=== PATIENT | female | born 1950 | race Caucasian/White ===

== ENCOUNTER 2016-08-15 07:34 | Day surgery (SDC) | payer MEDICARE, OTHER ==
[~2016-08-15] VITALS: Ht 162.6 cm; Wt 82.0 kg
[~2016-08-15 07:34] MED LIST: 0.9% Sodium Chloride 1,000 ML IV SCH; AMLO5TAB2 PO; BUPR150T9 PO; FLUO20TA28 PO; GABA-502 PO; LIP40 PO; LOSA100T29 PO; OMEP40CA36 PO; Sodium Chloride LOK Flush 10 mL Syringe IV PRN; fentaNYL-PF 50 mCg/mL 2 mL Inj IVPUSH PRN
[2016-08-15 07:49] VITALS: BP 131/81; PULSE 73; RESP 16; O2SAT 98
[2016-08-15 08:53] VITALS: BP 136/79; PULSE 77; RESP 13; O2SAT 92
[2016-08-15 09:03] VITALS: BP 117/87; PULSE 77; RESP 14; O2SAT 93
[2016-08-15 09:13] VITALS: BP 170/86; PULSE 88; RESP 16; O2SAT 93
[2016-08-15 09:22] VITALS: BP 151/78; PULSE 83; RESP 15; O2SAT 92
--- NOTE | 2016-08-15 15:57 | ENDO ---
[address] [address] ENDOSCOPY PROCEDURE PATIENT: GÓMEZ MONTOYA : 1950 MR#: [id number] ADMIT: 08/15/2016 JOB ID: [id number] DATE: 08/15/2016 TYPE OF OPERATION: 1. Esophagogastroduodenoscopy with biopsy. 2. Colonoscopy with biopsy. PREOPERATIVE DIAGNOSIS(ES): Gastroesophageal reflux disease, presumed ulcerative colitis. POSTOPERATIVE DIAGNOSIS(ES): 1. Mild nonerosive gastritis. 2. Slight narrowed pylorus status post biopsy in which a pediatric upper scope was able to pass through without any masses. 3. Mild sigmoid diverticulosis. 4. Small internal hemorrhoids. ANESTHESIA: 1. Fentanyl 175 mcg. 2. Versed 7 mg IV administered. COMPLICATION: None. BLOOD LOSS: Minimal. DESCRIPTION OF PROCEDURE: After the risks and benefits were explained to the patient, informed consent was obtained. After anesthesia administered, an upper endoscope was inserted into the mouth, intubating the esophagus, stomach, second portion of duodenum. Mucosa carefully examined. After the procedure was done, the scope was withdrawn and the procedure terminated. A colonoscope was then inserted from the rectum to the terminal ileum and mucosa carefully examined. The prep of the patient was excellent. After procedure was done, the scope withdrawn and procedure terminated. FINDINGS: Upon inspection of the esophagus, the esophagus was normal without masses, ulcers, lesions. Z-line located at 35 cm from incisors. Upon entering the stomach, there was mild nonerosive gastritis that was seen. No masses, ulcers or lesions were seen. Upon trying to enter the pylorus, the regular upper endoscope could not pass through most likely unknown or may be most likely due to anatomical defect versus extrinsic compression. A pediatric upper endoscope, the spaghetti scope was able to pass through to the duodenal bulb, first and second portion were normal without any masses or lesions. Biopsies also taken of the pylorus, antrum and body of the stomach and distal esophagus. Upon inspection of the anus, no masses, hemorrhoids, ulcers, fissures that were seen throughout the entire examination. There was mild sigmoid diverticulosis. No masses or polyps were seen. Biopsies taken of the terminal ileum and random colon to rule out inflammatory bowel disease. Retroflexion showed small internal hemorrhoids. IMPRESSION: 1. Small internal hemorrhoids. 2. Mild sigmoid diverticulosis. 3. Slightly narrow pylorus status post biopsy. 4. Mild nonerosive gastritis. RECOMMENDATION: 1. Await pathology results. 2. CT of the abdomen and pelvis with contrast to rule out extrinsic masses mass. 3. Follow up in GI clinic as needed.
--- NOTE | 2016-08-16 11:59 | PATH ---
SURGICAL PATHOLOGY Attending Physician:Ehsan Morley MD CASE STATUS: Signed Out PATIENT NAME: GÓMEZ MONTOYA PID: [id number] : 1950 DATE COLLECTED:08/15/2016 20:02 SPECIMEN: 1: Stomach, Antrum, Biopsy 2: Gastric, Biopsy 3: Esophagus, Biopsy 4: Gastric, Biopsy 5: Ileum, Biopsy 6: Colon, Biopsy CLINICAL HISTORY: 1). ANTRUM BIOPSY 2). GASTRIC BODY BIOPSY 3). DISTAL ESOPHAGUS BIOPSY 4). PYLORUS BIOPSY 5). TERMINAL ILEUM BIOPSY 6). RANDOM COLON FINAL DIAGNOSIS: 1. Gastric Antrum Biopsy: Gastric antral mucosa with no diagnostic alterations. Negative for intestinal metaplasia. Negative for Helicobacter organisms. Negative for dysplasia and malignancy. 2. Gastric Body Biopsy: Gastric body mucosa with no diagnostic alterations. Negative for intestinal metaplasia. Negative for Helicobacter organisms. Negative for dysplasia and malignancy. 3. Distal Esophagus Biopsy: Squamocolumnar mucosa with no diagnostic alterations. Negative for intestinal metaplasia. Negative for dysplasia and malignancy. 4. Pylorus Biopsy: Superficial fragments of glandular mucosa. Negative for intestinal metaplasia. Negative for inflammation, dysplasia and malignancy. 5. Terminal Ileum Biopsy: Small bowel mucosa with no diagnostic alterations. Negative for inflammation, granulomas, dysplasia and malignancy. 6. Random Colon: Colonic mucosa with no diagnostic alterations. Negative for inflammation, dysplasia and malignancy. ICD10 R10.9 GROSS DESCRIPTION: The specimen is received in six formalin filled containers labeled with the patient's name. 1). The specimen is sublabeled "antrum" and consists of a 0.3 x 0.2 x 0.2 CM portion of tissue which is entirely submitted in cassette 1A. 2). The specimen is sublabeled "gastric body" and consists of 2 portions of tissue which aggregate to 0.2 x 0.2 x 0.2 CM. The specimen is entirely submitted in cassette 2A. 3). The specimen is sublabeled "distal esophagus" and consists of 2 portions of tissue which aggregate to 0.3 x 0.2 x 0.2 CM. The specimen is entirely submitted in cassette 3A. 4). The specimen is sublabeled "pylorus" and consists of a less than 0.1 CM portion of tissue which is entirely submitted in cassette 4A. 5). The specimen is sublabeled " TI " and consists of a 0.2 x 0.2 x 0.2 CM portion of tissue which is entirely submitted in cassette 5A. 6). The specimen is sublabeled "random colon" and consists of multiple portions of tissue which aggregate to 0.5 x 0.3 x 0.2 CM. The specimen is entirely submitted in cassette 6A. 08/15/2016 DAC MICRO DESCRIPTION: Please see diagnosis. ICD-9 CODES: CPT CODES: 1: 44875 2: 38919 3: 70306 4: 39114 5: 09476 6: 06062 Electronically Signed Out Edel Dominguez MD [facility] [address], [place] [address] Technical component performed at [facility], [facility] [address], [place], [address]
== END 2016-08-15 23:59 | disposition home or self-care (01) ==
LOC: END 07:34
PROVIDERS: ATTEND Internal Medicine Gastroenterology
DX: K57.30 Diverticulosis of large intestine without perforation or abscess without bleeding (principal); K29.60 Other gastritis without bleeding; K64.8 Other hemorrhoids; K21.9 Gastro-esophageal reflux disease without esophagitis; I10 Essential (primary) hypertension